=== PATIENT | female | born 1960 | race Caucasian/White ===

== ENCOUNTER 2017-02-16 13:23 | Emergency (ER) | payer OTHER ==
[~2017-02-16] VITALS: Ht 162.6 cm; Wt 127.0 kg
[~2017-02-16 13:23] MED LIST: APTIOM800 MG PO; CIPRO 500MG TA500 MG PO; FLEXERIL10 MG PO; FLUOXETINE HYDR20 MG PO; FLUOXETINE20 MG PO; HYDROCODONE/ACE1 TA1 PO; METRONIDAZOLE500 MG PO; MOBIC15 M1 PO; MULTIVITAMIN1 TAB PO; MYSOLINE PO; PERCOCET 325 MG1 TA2 PO; PERCOCET 5-3251 EACH PO; TRAMADOL50 MG PO; TYLENOL XSTR500 MG PO; ZOFRAN ODT4 MG PO; ZONISAMIDE100 MG PO
--- NOTE | 2017-02-16 14:31 | ED GENERAL ADULT ---
History of Present Illness General Chief Complaint: General Adult Stated Complaint: FEVER, +NV Source: patient Exam Limitations: no limitations Vital Signs & Intake/Output Vital Signs & Intake/Output Vital Signs Date Time Temp Pulse Resp B/P B/P Pulse O2 O2 Flow FiO2 Mean Ox Delivery Rate 02/16 1825 97.1 71 18 152/71 98 02/16 1606 97.3 69 18 98/57 95 05 1441 Room Air 02/16 1331 98.4 80 18 109/75 96 Room Air Room Air Allergies Coded Allergies: Gadolinium-Containing Contrast Medi (Severe, UNKNOWN REACTION TO IVP DYE ) Iodinated Contrast Media - Oral and (IODINATED CONTRAST MEDIA - IV DYE) (Severe, UNKNOWN REACTION TO IVP DYE 02/15/16) Penicillins (Severe, SEVERE REACTION A BABY 02/15/16) phenobarbital (Severe, ANAPHYLAXIS 02/15/16) carbamazepine (From TEGRETOL) (Intermediate, INDUCES SEIZURES 02/15/16) phenytoin (From DILANTIN) (Intermediate, SEIZURES 02/15/16) Reconcile Medications Acetaminophen 500 MG TABLET 2 TAB PO PRN PAIN (Reported) Esomeprazole (Nexium) 40 MG CAPSULE.DR 1 CAP PO DAILY GI (Reported) Fluoxetine HCl 20 MG CAPSULE 1 CAP PO DAILY MENTAL HEALTH (Reported) Levetiracetam 500 MG TABLET 4 TAB PO BID SEIZURES (Reported) Ondansetron (Zofran Odt) 4 MG TAB.RAPDIS 1 TAB SL TID PRN VOMITING Primidone 250 MG TABLET 1 TAB PO BID SEIZURES (Reported) Triage Note: TRIAGE: 56 Y/O FEMALE PRESENTS C/O FEVER AND SORE THROAT. PRESENTS WITH SON WITH SAME COMPLAINTS. AFEBRILE IN TRIAGE. REPORTS, "NO, I DIDN'T GO TO MY PRIMARY CARE DOCTOR. I ALWAYS JUST COME HERE FIRST AND THEN I'LL GO THERE IF I NEED TO." Triage Nurses Notes Reviewed? yes HPI: 56 y/o female with h/o seizures presenting with non-radiating dull epigastric abd pain, worse after meals, associated with nausea and vomiting since yesterday. Reports 3 episodes of nonbloody emesis and subjective low-grade fevers. Developed a sore throat after episodes of emesis. Tried tylenol without relief. No diarrhea. Last bowel movement was yesterday. +Dysuria. + Cholecystectomy and . Patient is not currently sexually active, denies history of STI or PID, denies any vaginal discharge, odor, or bleeding (MAX MEDRANO PA-C) Past History Travel History Traveled to [place] past 21 day No Medical History Any Pertinent Medical History? see below for history Neurological: seizure EENT: NONE Cardiovascular: NONE Respiratory: NONE Gastrointestinal: NONE Hepatic: ? 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 No (MAX MEDRANO PA-C) Review of Systems Review of Systems Constitutional: Reports: chills, fever. Denies: malaise, weakness. EENTM: Reports: throat pain. Respiratory: Reports: no symptoms. Cardiovascular: Reports: no symptoms. GI: Reports: abdominal pain, nausea, vomiting. Denies: constipation, diarrhea, distention, melena. Genitourinary: Reports: dysuria. Denies: discharge, frequency, hematuria, urgency. (MAX MEDRANO PA-C) Physical Exam Physical Exam General Appearance: well developed/nourished, no apparent distress Head: atraumatic Ears, Nose, Throat: normal pharynx, normal ENT inspection Respiratory: normal breath sounds, lungs clear Cardiovascular: regular rate/rhythm Gastrointestinal: normal bowel sounds, soft, tenderness, Abd is soft, ND, +TTP in epigastrium and RUQ, neg cam's sign, no rebound or guarding, normal BS. No CVAT. Core Measures ACS in differential dx? No CVA/TIA Diagnosis: No Severe Sepsis Present: No Septic Shock Present: No (MAX MEDRANO PA-C) Progress Differential Diagnoses I considered the following diagnoses in my evaluation of the patient: [ Pancreatitis versus peptic ulcer disease versus gastritis versus cholelithiasis versus cholangitis] For dysuria the following diagnoses were considered: UTI versus pyelonephritis versus STI versus PID Plan of Care: Orders Procedure Date/time Status URINALYSIS 02/16 1644 Complete CULTURE,URINE 02/16 1505 Active URINALYSIS 02/16 150 Complete LIPASE 02/16 150 Complete COMPREHENSIVE METABOLIC PANEL 02/16 150 Complete CBC WITHOUT DIFFERENTIAL 02/16 150 Complete Laboratory Tests 02/16/17 1700: Urine Color YEL, Urine Clarity CLEAR, Urine pH 6.0, Ur Specific [place] 1.010, Urine Protein NEG, Urine Ketones NEG, Urine Nitrite NEG, Urine Bilirubin NEG, Urine Urobilinogen 0.2, Ur Leukocyte Esterase NEG, Ur Microscopic SEDIMENT EXAMINED, Urine RBC RARE, Ur Epithelial Cells FEW, Urine Hemoglobin TRACE-LYSED, Urine Glucose NEG 02/16/17 1530: Anion Gap 13, Estimated GFR > 60, BUN/Creatinine Ratio 21.7, Glucose 92, Calcium 9.3, Total Bilirubin 0.4, AST 19, ALT 29, Alkaline Phosphatase 147 H, Total Protein 7.2, Albumin 4.2, Globulin 3.0, Albumin/Globulin Ratio 1.4, Lipase 57, CBC w Diff NO MAN DIFF REQ, RBC 4.60, MCV 88.5, MCH 29.5, RDW 14.3, MPV 8.7, Gran % 67.6, Lymphocytes % 23.0, Monocytes % 8.8, Eosinophils % 0.1, Basophils % 0.5, Absolute Granulocytes 3.6, Absolute Lymphocytes 1.2, Absolute Monocytes 0.5 , Absolute Eosinophils 0, Absolute Basophils 0, PUBS MCHC 33.3 02/16/17 1527: Urine Color YEL, Urine Clarity CLEAR, Urine pH 6.0, Ur Specific [place] 1.020, Urine Protein TRACE H, Urine Ketones NEG, Urine Nitrite NEG, Urine Bilirubin NEG, Urine Urobilinogen 0.2, Ur Leukocyte Esterase NEG, Ur Microscopic SEDIMENT EXAMINED, Urine RBC 3-5, Ur Epithelial Cells MOD H, Urine Bacteria MOD H, Urine Hemoglobin TRACE-INTACT, Urine Glucose NEG Microbiology 02/16 1527 URINE ROUT: Urine Culture - RECD Labs, urine, right upper quadrant ultrasound were all unremarkable. Epigastric and right upper quadrant pain is likely secondary to viral gastritis versus peptic ulcer disease. Patient given Rx for Zofran and instructed to use Maalox [id number] as needed. Urine was negative for signs of infection, patient declining pelvic exam or STI testing she is not currently sexually active. Therefore no positive dysuria was found in ED. Patient will make appointment to follow up with her PMD for reevaluation. (MAX MEDRANO PA-C) Initial ED EKG: none (MAX MEDRANO PA-C) Departure Departure Disposition: HOME OR SELF CARE Condition: Stable Clinical Impression Primary Impression: Epigastric pain Secondary Impressions: Dysuria, Vomiting Referrals: LEI BELLO (PCP/Family) Departure Forms: Customer Survey General Discharge Information Prescriptions: Current Visit Scripts Ondansetron (Zofran Odt) 1 TAB SL TID PRN VOMITING #10 TAB Comments Use one tablet Zofran every 8 hours as needed for nausea and vomiting. Do not swallow tablet, allowed to dissolve under tongue. Follow-up with your primary care provider for reevaluation. Return to the ED for any new or worsening symptoms. (MAX MEDRANO PA-C) PA/POULTRY HUSBANDRY WORKER Co-Sign Statement Statement: ED Attending supervision documentation- I saw and evaluated the patient. I have also reviewed all the pertinent lab results and diagnostic results. I agree with the findings and the plan of care as documented in the PA's/POULTRY HUSBANDRY WORKER's documentation. x I have reviewed the ED Record and agree with the PA's/POULTRY HUSBANDRY WORKER's documentation. [] Additions or exceptions (if any) to the PAs/POULTRY HUSBANDRY WORKER's note and plan are summarized below: [] (MARINO BANDA,TREASURE) Critical Care Note Critical Care Note Critical Care Time: non-applicable (MAX MEDRANO PA-C)
[2017-02-16 15:43] LABS: ABSOLUTE BASOPHIL COUNT 0 /CUMM (0.0-0.2); ABSOLUTE EOSINOPHIL COUNT 0 /CUMM (0.0-0.7); ABSOLUTE GRANULOCYTE CT 3.6 /CUMM (1.4-6.5); ABSOLUTE LYMPH COUNT 1.2 /CUMM (1.2-3.4); ABSOLUTE MONOCYTE COUNT 0.5 /CUMM (0.10-0.60); BASOPHIL % 0.5 % (0.0-2.0); EOSINOPHIL % 0.1 % (0-5); GRANULOCYTE % 67.6 % (42.2-75.2); HEMATOCRIT 40.7 % (37-47); MEAN CORPUSCULAR HGB 29.5 PG (27.0-31.0); MEAN CORPUSCULAR HGB CONC 33.3 G/DL (33.0-37.0); MEAN CORPUSCULAR VOLUME 88.5 FL (81.0-99.0); MEAN PLATELET VOLUME 8.7 FL (7.4-10.4); PLATELET COUNT 267 /CUMM (130-400); RBC DISTRIBUTION WIDTH 14.3 % (11.5-14.5); WHITE BLOOD CELL COUNT 5.4 /CUMM (4.8-10.8)
--- NOTE | 2017-02-16 16:24 | ULTRASOUND REPORT ---
EXAMINATION: US ABDOMEN LIMITED CLINICAL INFORMATION: Abdominal pain, vomiting. COMPARISON: 01/17/2015 CT scan abdomen pelvis TECHNIQUE: Real-time imaging of the right upper quadrant abdominal viscera. FINDINGS: The proximal abdominal aorta and IVC are within normal limits. PANCREAS: The visualized pancreas are within normal limits. The distal body and tail of pancreas cannot be fully evaluated due to superimposed bowel gas. LIVER: Limited evaluation of liver due to superimposed bowel gas and patient's body habitus. The liver demonstrates normal size, contour and echogenicity. No focal lesion or intrahepatic biliary duct dilatation. GALLBLADDER: Surgically absent. COMMON BILE DUCT: Normal in caliber measuring 0.3cm in diameter. RIGHT KIDNEY: No hydronephrosis. No renal calculi or focal parenchymal lesions. The kidney measures 10.3 cm in maximum dimension. FREE FLUID: None. IMPRESSION: 1. Prior cholecystectomy. 2. Otherwise unremarkable right upper quadrant ultrasound, considering limitations.
[2017-02-16] MEDS ORDERED: FLUOXETINE HCL20 M2 PO (16:30)
[2017-02-16] MEDS ORDERED: PRIMIDONE250 M1 PO (16:30)
[2017-02-16] MEDS ORDERED: NEXIUM40 M1 PO (16:30)
[2017-02-16] MEDS ORDERED: LEVETIRACETAM500 M2 PO (16:31)
[2017-02-16] MEDS ORDERED: ACETAMINOPHEN500 M4 PO (16:31)
[2017-02-16] MEDS ORDERED: ZOFRAN ODT4 M1 SL (18:24)
[2017-02-16 18:25] VITALS: BP 152/71
== END 2017-02-16 18:36 ==
LOC: ERH 13:23
PROVIDERS: Physician Assistant
DX: R10.13 Epigastric pain (principal); R30.0 Dysuria; R11.10 Vomiting, unspecified
CPT/HCPCS: 81001; 87086; 96374; J2405